=== PATIENT | female | born 2005 | race Caucasian/White ===

== ENCOUNTER 2024-03-29 21:04 | Emergency (ER) | payer OTHER, SELFPAY ==
--- OUTSIDE RECORDS SUMMARY | 2024-03-29 21:11 | XMS REPORT | Continuity of Care Document ---
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 Name Role Phone PCP, PATIENT DOES NOT HAVE A Primary Care Physic clark Unavailable JAYLEN JACKSON Attending Clinician Unavailable JAYLEN JACKSON Attending Clinician Unavailable HECTOR ISAAC Attending Clinician Unavailable Hector Isaac MD Attending Clinician [phone] LUPE LOPEZ Attending Clinician Unavailable Lupe [place] Attending Clinician [phone] Doctor Unassigned, [place] Attending Clinician U courtneyailGODWIN Emery Attending Clinician Unavailable Bro Stinson DO Attending Clinician [phone] Godwin Hobson MD Attending Clinician [phone] RICCARDO HANDY Attending Clinician Unavailable Riccardo Swanson Attending Clinician [phone] SARBJIT HARRIS Attending Clinician Unavailable Sarbjit Leyva Attending Clinician [phone] GUILLERMINA GARZA Attending Clinician UnaGuillermina Morris MD Attending Clinician + Jc Tyson Attending Clinician JC CUELLO Attending Clinician UnavailIRIS Urias Attending Clinician Unavailable IRIS LYNN Attending Clinician Unavailable SUSAN KELLY Attending Clinician Unavaila HECTOR López Admitting Clinician Unavailable LUPE LOPEZ Admitting Clinician Unavailable BRO STINSON Admitting Clinician Unavailable GUILLERMINA GARZA Admitting Clinician Unav ailable Payers Payer Name Policy Type Policy Number Effective Date Expirati on Date Source [facility] [employer] [id number] 2023 00:00:00 [facility] [id number] 2021 00:00:00 Problems Condition Name Condition Details Condition Category Status Onset Date Resolution Date Last Treatment Date Treating Clinician Comments Source Screening examinatio n for STD (sexually transmitte d disease) Screening examinatio n for STD (sexually transmitte d disease) Disease Active 04-26 00:00: 00 [facility] Dysmenorrh ea Dysmenorrh ea Disease Active 04-26 00:00: 00 [facility] Allergies, Adverse Reactions, Alerts Allergy Name Allergy Type Status Severity Reaction(s) Onset Date Inactive Date Treating Clinician Comments Source NO KNOWN ALLERGIE S Drug Class Active [facility] Social History Social Habit Start Date Stop Date Quantity Comments Source Gender identity [facility] 2023-01-21 00:00:00 2023-01-21 00:00:00 0 /d [facility] Alcoholic beverage intake 2023-01-21 00:00:00 2023-01-21 00:00:00 0 /d [facility] Exposure to SARS-CoV-2 (event) 2022-04-03 00:00:00 2022-04-13 14:43:00 Not sure [facility] History of Social function 2021-06-28 00:00:00 2021-06-28 00:00:00 [facility] Tobacco use and exposure 2017-05-26 00:00:00 2017-05-26 00:00:00 Smokeless tobacco non-user [facility] Sex assigned at 2004 00:00:00 2005 00:00:00 [facility] Smoking Status Start Date Stop Date Source Never smoked tobacco [facility] Medications Ordered Medication Name Filled Medication Name Start Date Stop Date Current Medication? Ordering Clinician Indication Dosage Frequency Signature (SIG) Comments Components Source ketorolac (TORADOL) injection 30 mg 09-12 18:30: 00 09-12 18:14 :00 No 30mg 30 mg, Slow IV Push, ONCE, 1 dose, On 09/13/23 at 1330, KAYLEE [facility] naproxen 500 mg tablet 09-12 00:00: 00 09-23 04:59 :00 No [id number] 500mg Take 1 tablet by mouth in the morning and 1 tablet in the evening. Take with meals. Do all this for 10 days. [facility] cephALEXin (KEFLEX) capsule 500 mg 2022-04 04:00: 01-22 04:03 :00 No 500mg 500 mg, Oral, ONCE, 1 dose, On Fri01/21/23 at 2300, KAYLEE
Re ason for Anti-Infec tive: Empiric Therapy for Suspected Infection< br>Empiric Therapy Site: Urine
D uration of therapy: 5 days [facility] NaCl 0.9% (NS) bolus infusion 1,000 mL 2022-04 02:30: 00 01-22 04:03 :00 No 1000mL at 999 mL/hr, 1,000 mL, IV Infusion, ONCE, 1 dose, On Fri01/21/23 at 2130, STAT [facility] ferrous sulfate 325 mg (65 mg iron) EC tablet 2022-04 00:00: 00 Yes [id number] 325mg Take 1 tablet by mouth in the morning and 1 tablet at noon and 1 tablet in the evening. Take with meals. [facility] cephALEXin (KEFLEX) 500 mg capsule 2022-04 00:00: 00 01-30 04:59 :00 No [id number] 500mg Take 1 capsule by mouth in the morning and 1 capsule at noon and 1 capsule in the evening. Do all this for 7 days. [facility] ondansetron 4 mg disintegrat ing tablet 09-19 00:00: 00 Yes [id number] 4mg Take 1 tablet by mouth every 12 (twelve) hours as needed for Nausea and Vomiting (N/V). [facility] butalbital- acetaminoph en-caff 50-325-40 mg tablet 09-19 00:00: 00 Yes [id number] 1{tbl} Take 1 tablet by mouth every 6 (six) hours as needed for Pain (scale 7-10). [facility] ketorolac (TORADOL) injection 15 mg 2021-04 22:45: 00 04-13 22:34 :00 No 15mg 15 mg, Intramuscu lar, ONCE, 1 dose, On 04/13/22 at 1645, KAYLEE [facility] medroxyPROG ESTERone (DEPO-PROVE RA) injection 150 mg 05-09 22:15: 00 04-10 22:14 :00 No [id number] 150mg [facility] naproxen (NAPROSYN) 375 mg tablet 11-28 00:00: 00 09-12 00:00 :00 No 375mg Take 1 tablet by mouth 2 (two) times daily with meals. [facility] Immunizations Ordered Immunization Name Filled Immunization Name Date Status Comments Source SARS-COV-2 COVID-19 PFIZER VACCINE 2020-12-13 00:00:00 Completed [facility] SARS-COV-2 COVID-19 PFIZER VACCINE 2020-12-13 00:00:00 Completed [facility] SARS-COV-2 COVID-19 PFIZER VACCINE 2020-12-13 00:00:00 Completed [facility] SARS-COV-2 COVID-19 PFIZER VACCINE 2020-12-13 00:00:00 Completed [facility] SARS-COV-2 COVID-19 PFIZER VACCINE 2020-12-13 00:00:00 Completed [facility] SARS-COV-2 COVID-19 PFIZER VACCINE 2020-12-13 00:00:00 Completed [facility] SARS-COV-2 COVID-19 PFIZER VACCINE 2020-12-13 00:00:00 Completed [facility] SARS-COV-2 COVID-19 PFIZER VACCINE 2020-11-22 00:00:00 Completed [facility] SARS-COV-2 COVID-19 PFIZER VACCINE 2020-11-22 00:00:00 Completed [facility] SARS-COV-2 COVID-19 PFIZER VACCINE 2020-11-22 00:00:00 Completed [facility] SARS-COV-2 COVID-19 PFIZER VACCINE 2020-11-22 00:00:00 Completed [facility] SARS-COV-2 COVID-19 PFIZER VACCINE 2020-11-22 00:00:00 Completed [facility] SARS-COV-2 COVID-19 PFIZER VACCINE 2020-11-22 00:00:00 Completed [facility] SARS-COV-2 COVID-19 PFIZER VACCINE 2020-11-22 00:00:00 Completed [facility] HPV 2016-11-25 00:00:00 Completed [facility] Meningococcal Vaccine 2016-11-25 00:00:00 Completed [facility] TDAP 2016-11-25 00:00:00 Completed [facility] HPV 2016-11-25 00:00:00 Completed [facility] Meningococcal Vaccine 2016-11-25 00:00:00 Completed [facility] TDAP 2016-11-25 00:00:00 Completed [facility] HPV 2016-11-25 00:00:00 Completed [facility] Meningococcal Vaccine 2016-11-25 00:00:00 Completed [facility] TDAP 2016-11-25 00:00:00 Completed [facility] HPV 2016-11-25 00:00:00 Completed [facility] Meningococcal Vaccine 2016-11-25 00:00:00 Completed [facility] TDAP 2016-11-25 00:00:00 Completed [facility] HPV 2016-11-25 00:00:00 Completed [facility] Meningococcal Vaccine 2016-11-25 00:00:00 Completed [facility] TDAP 2016-11-25 00:00:00 Completed [facility] HPV 2016-11-25 00:00:00 Completed [facility] Meningococcal Vaccine 2016-11-25 00:00:00 Completed [facility] TDAP 2016-11-25 00:00:00 Completed [facility] HPV 2016-11-25 00:00:00 Completed [facility] Meningococcal Vaccine 2016-11-25 00:00:00 Completed [facility] TDAP 2016-11-25 00:00:00 Completed [facility] DTAP 2008-09-15 00:00:00 Completed [facility] DTAP 2008-09-15 00:00:00 Completed [facility] DTAP 2008-09-15 00:00:00 Completed [facility] DTAP 2008-09-15 00:00:00 Completed [facility] DTAP 2008-09-15 00:00:00 Completed [facility] DTAP 2008-09-15 00:00:00 Completed [facility] DTAP 2008-09-15 00:00:00 Completed [facility] MMR 2008-07-11 00:00:00 Completed [facility] Polio (IPV/OPV) 2008-07-11 00:00:00 Completed [facility] Varicella (varivax)(chicken pox) 2008-07-11 00:00:00 Completed [facility] MMR 2008-07-11 00:00:00 Completed [facility] Polio (IPV/OPV) 2008-07-11 00:00:00 Completed [facility] Varicella (varivax)(chicken pox) 2008-07-11 00:00:00 Completed [facility] MMR 2008-07-11 00:00:00 Completed [facility] Polio (IPV/OPV) 2008-07-11 00:00:00 Completed [facility] Varicella (varivax)(chicken pox) 2008-07-11 00:00:00 Completed [facility] MMR 2008-07-11 00:00:00 Completed [facility] Polio (IPV/OPV) 2008-07-11 00:00:00 Completed [facility] Varicella (varivax)(chicken pox) 2008-07-11 00:00:00 Completed [facility] MMR 2008-07-11 00:00:00 Completed [facility] Polio (IPV/OPV) 2008-07-11 00:00:00 Completed [facility] Varicella (varivax)(chicken pox) 2008-07-11 00:00:00 Completed [facility] MMR 2008-07-11 00:00:00 Completed [facility] Polio (IPV/OPV) 2008-07-11 00:00:00 Completed [facility] Varicella (varivax)(chicken pox) 2008-07-11 00:00:00 Completed [facility] MMR 2008-07-11 00:00:00 Completed [facility] Polio (IPV/OPV) 2008-07-11 00:00:00 Completed [facility] Varicella (varivax)(chicken pox) 2008-07-11 00:00:00 Completed [facility] DTAP 2008-03-03 00:00:00 Completed [facility] HEPATITIS A 2008-03-03 00:00:00 Completed [facility] Influenza Virus Vaccine 2008-03-03 00:00:00 Completed [facility] DTAP 2008-03-03 00:00:00 Completed [facility] HEPATITIS A 2008-03-03 00:00:00 Completed [facility] Influenza Virus Vaccine 2008-03-03 00:00:00 Completed [facility] DTAP 2008-03-03 00:00:00 Completed [facility] HEPATITIS A 2008-03-03 00:00:00 Completed [facility] Influenza Virus Vaccine 2008-03-03 00:00:00 Completed [facility] DTAP 2008-03-03 00:00:00 Completed [facility] HEPATITIS A 2008-03-03 00:00:00 Completed [facility] Influenza Virus Vaccine 2008-03-03 00:00:00 Completed [facility] DTAP 2008-03-03 00:00:00 Completed [facility] HEPATITIS A 2008-03-03 00:00:00 Completed [facility] Influenza Virus Vaccine 2008-03-03 00:00:00 Completed [facility] DTAP 2008-03-03 00:00:00 Completed [facility] HEPATITIS A 2008-03-03 00:00:00 Completed [facility] Influenza Virus Vaccine 2008-03-03 00:00:00 Completed [facility] DTAP 2008-03-03 00:00:00 Completed [facility] HEPATITIS A 2008-03-03 00:00:00 Completed [facility] Influenza Virus Vaccine 2008-03-03 00:00:00 Completed [facility] DTAP 2005-12-12 00:00:00 Completed [facility] Pneumococcal 13 Conjugate, PCV13 (Prevnar 13) 2005-12-12 00:00:00 Completed [facility] Polio (IPV/OPV) 2005-12-12 00:00:00 Completed [facility] DTAP 2005-12-12 00:00:00 Completed [facility] Pneumococcal 13 Conjugate, PCV13 (Prevnar 13) 2005-12-12 00:00:00 Completed [facility] Polio (IPV/OPV) 2005-12-12 00:00:00 Completed [facility] DTAP 2005-12-12 00:00:00 Completed [facility] Pneumococcal 13 Conjugate, PCV13 (Prevnar 13) 2005-12-12 00:00:00 Completed [facility] Polio (IPV/OPV) 2005-12-12 00:00:00 Completed [facility] DTAP 2005-12-12 00:00:00 Completed [facility] Pneumococcal 13 Conjugate, PCV13 (Prevnar 13) 2005-12-12 00:00:00 Completed [facility] Polio (IPV/OPV) 2005-12-12 00:00:00 Completed [facility] DTAP 2005-12-12 00:00:00 Completed [facility] Pneumococcal 13 Conjugate, PCV13 (Prevnar 13) 2005-12-12 00:00:00 Completed [facility] Polio (IPV/OPV) 2005-12-12 00:00:00 Completed [facility] DTAP 2005-12-12 00:00:00 Completed [facility] Pneumococcal 13 Conjugate, PCV13 (Prevnar 13) 2005-12-12 00:00:00 Completed [facility] Polio (IPV/OPV) 2005-12-12 00:00:00 Completed [facility] DTAP 2005-12-12 00:00:00 Completed [facility] Pneumococcal 13 Conjugate, PCV13 (Prevnar 13) 2005-12-12 00:00:00 Completed [facility] Polio (IPV/OPV) 2005-12-12 00:00:00 Completed [facility] HIB 4 Dose Schedule 2005-09-10 00:00:00 Completed [facility] HEPATITIS A 2005-09-10 00:00:00 Completed [facility] MMR 2005-09-10 00:00:00 Completed [facility] Varicella (varivax)(chicken pox) 2005-09-10 00:00:00 Completed [facility] HIB 4 Dose Schedule 2005-09-10 00:00:00 Completed [facility] HEPATITIS A 2005-09-10 00:00:00 Completed [facility] MMR 2005-09-10 00:00:00 Completed [facility] Varicella (varivax)(chicken pox) 2005-09-10 00:00:00 Completed [facility] HIB 4 Dose Schedule 2005-09-10 00:00:00 Completed [facility] HEPATITIS A 2005-09-10 00:00:00 Completed [facility] MMR 2005-09-10 00:00:00 Completed [facility] Varicella (varivax)(chicken pox) 2005-09-10 00:00:00 Completed [facility] HIB 4 Dose Schedule 2005-09-10 00:00:00 Completed [facility] HEPATITIS A 2005-09-10 00:00:00 Completed [facility] MMR 2005-09-10 00:00:00 Completed [facility] Varicella (varivax)(chicken pox) 2005-09-10 00:00:00 Completed [facility] HIB 4 Dose Schedule 2005-09-10 00:00:00 Completed [facility] HEPATITIS A 2005-09-10 00:00:00 Completed [facility] MMR 2005-09-10 00:00:00 Completed [facility] Varicella (varivax)(chicken pox) 2005-09-10 00:00:00 Completed [facility] HIB 4 Dose Schedule 2005-09-10 00:00:00 Completed [facility] HEPATITIS A 2005-09-10 00:00:00 Completed [facility] MMR 2005-09-10 00:00:00 Completed [facility] Varicella (varivax)(chicken pox) 2005-09-10 00:00:00 Completed [facility] HIB 4 Dose Schedule 2005-09-10 00:00:00 Completed [facility] HEPATITIS A 2005-09-10 00:00:00 Completed [facility] MMR 2005-09-10 00:00:00 Completed [facility] Varicella (varivax)(chicken pox) 2005-09-10 00:00:00 Completed [facility] HIB 4 Dose Schedule 2005-07-23 00:00:00 Completed [facility] Pediarix (dtap/hep B/ipv) 2005-07-23 00:00:00 Completed [facility] Pneumococcal 13 Conjugate, PCV13 (Prevnar 13) 2005-07-23 00:00:00 Completed [facility] HIB 4 Dose Schedule 2005-07-23 00:00:00 Completed [facility] Pediarix (dtap/hep B/ipv) 2005-07-23 00:00:00 Completed [facility] Pneumococcal 13 Conjugate, PCV13 (Prevnar 13) 2005-07-23 00:00:00 Completed [facility] HIB 4 Dose Schedule 2005-07-23 00:00:00 Completed [facility] Pediarix (dtap/hep B/ipv) 2005-07-23 00:00:00 Completed [facility] Pneumococcal 13 Conjugate, PCV13 (Prevnar 13) 2005-07-23 00:00:00 Completed [facility] HIB 4 Dose Schedule 2005-07-23 00:00:00 Completed [facility] Pediarix (dtap/hep B/ipv) 2005-07-23 00:00:00 Completed [facility] Pneumococcal 13 Conjugate, PCV13 (Prevnar 13) 2005-07-23 00:00:00 Completed [facility] HIB 4 Dose Schedule 2005-07-23 00:00:00 Completed [facility] Pediarix (dtap/hep B/ipv) 2005-07-23 00:00:00 Completed [facility] Pneumococcal 13 Conjugate, PCV13 (Prevnar 13) 2005-07-23 00:00:00 Completed [facility] HIB 4 Dose Schedule 2005-07-23 00:00:00 Completed [facility] Pediarix (dtap/hep B/ipv) 2005-07-23 00:00:00 Completed [facility] Pneumococcal 13 Conjugate, PCV13 (Prevnar 13) 2005-07-23 00:00:00 Completed [facility] HIB 4 Dose Schedule 2005-07-23 00:00:00 Completed [facility] Pediarix (dtap/hep B/ipv) 2005-07-23 00:00:00 Completed [facility] Pneumococcal 13 Conjugate, PCV13 (Prevnar 13) 2005-07-23 00:00:00 Completed [facility] HIB 4 Dose Schedule 2005-05-30 00:00:00 Completed [facility] Pediarix (dtap/hep B/ipv) 2005-05-30 00:00:00 Completed [facility] Pneumococcal 13 Conjugate, PCV13 (Prevnar 13) 2005-05-30 00:00:00 Completed [facility] HIB 4 Dose Schedule 2005-05-30 00:00:00 Completed [facility] Pediarix (dtap/hep B/ipv) 2005-05-30 00:00:00 [facility] [facility] Pneumococcal 13 Conjugate, PCV13 (Prevnar 13) 2005-05-30 00:00:00 Completed [facility] HIB 4 Dose Schedule 2005-05-30 00:00:00 Completed [facility] Pediarix (dtap/hep B/ipv) 2005-05-30 00:00:00 Completed [facility] Pneumococcal 13 Conjugate, PCV13 (Prevnar 13) 2005-05-30 00:00:00 Completed [facility] HIB 4 Dose Schedule 2005-05-30 00:00:00 Completed [facility] Pediarix (dtap/hep B/ipv) 2005-05-30 00:00:00 Completed [facility] Pneumococcal 13 Conjugate, PCV13 (Prevnar 13) 2005-05-30 00:00:00 Completed [facility] HIB 4 Dose Schedule 2005-05-30 00:00:00 Completed [facility] Pediarix (dtap/hep B/ipv) 2005-05-30 00:00:00 Completed [facility] Pneumococcal 13 Conjugate, PCV13 (Prevnar 13) 2005-05-30 00:00:00 Completed [facility] HIB 4 Dose Schedule 2005-05-30 00:00:00 Completed [facility] Pediarix (dtap/hep B/ipv) 2005-05-30 00:00:00 Completed [facility] Pneumococcal 13 Conjugate, PCV13 (Prevnar 13) 2005-05-30 00:00:00 Completed [facility] HIB 4 Dose Schedule 2005-05-30 00:00:00 Completed [facility] Pediarix (dtap/hep B/ipv) 2005-05-30 00:00:00 Completed [facility] Pneumococcal 13 Conjugate, PCV13 (Prevnar 13) 2005-05-30 00:00:00 Completed [facility] HIB 4 Dose Schedule 2005-02-15 00:00:00 Completed [facility] Pediarix (dtap/hep B/ipv) 2005-02-15 00:00:00 Completed [facility] Pneumococcal 13 Conjugate, PCV13 (Prevnar 13) 2005-02-15 00:00:00 Completed [facility] HIB 4 Dose Schedule 2005-02-15 00:00:00 Completed [facility] Pediarix (dtap/hep B/ipv) 2005-02-15 00:00:00 Completed [facility] Pneumococcal 13 Conjugate, PCV13 (Prevnar 13) 2005-02-15 00:00:00 Completed [facility] HIB 4 Dose Schedule 2005-02-15 00:00:00 Completed [facility] Pediarix (dtap/hep B/ipv) 2005-02-15 00:00:00 Completed [facility] Pneumococcal 13 Conjugate, PCV13 (Prevnar 13) 2005-02-15 00:00:00 Completed [facility] HIB 4 Dose Schedule 2005-02-15 00:00:00 Completed [facility] Pediarix (dtap/hep B/ipv) 2005-02-15 00:00:00 Completed [facility] Pneumococcal 13 Conjugate, PCV13 (Prevnar 13) 2005-02-15 00:00:00 Completed [facility] HIB 4 Dose Schedule 2005-02-15 00:00:00 Completed [facility] Pediarix (dtap/hep B/ipv) 2005-02-15 00:00:00 Completed [facility] Pneumococcal 13 Conjugate, PCV13 (Prevnar 13) 2005-02-15 00:00:00 Completed [facility] HIB 4 Dose Schedule 2005-02-15 00:00:00 Completed [facility] Pediarix (dtap/hep B/ipv) 2005-02-15 00:00:00 Completed [facility] Pneumococcal 13 Conjugate, PCV13 (Prevnar 13) 2005-02-15 00:00:00 Completed [facility] HIB 4 Dose Schedule 2005-02-15 00:00:00 Completed [facility] Pediarix (dtap/hep B/ipv) 2005-02-15 00:00:00 Completed [facility] Pneumococcal 13 Conjugate, PCV13 (Prevnar 13) 2005-02-15 00:00:00 Completed [facility] Hep B, Adol or Pedi Dosage 2004 00:00:00 Completed [facility] Hep B, Adol or Pedi Dosage 2004 00:00:00 Completed [facility] Hep B, Adol or Pedi Dosage 2004 00:00:00 Completed [facility] Hep B, Adol or Pedi Dosage 2004 00:00:00 Completed [facility] Hep B, Adol or Pedi Dosage 2004 00:00:00 Completed [facility] Hep B, Adol or Pedi Dosage 2004 00:00:00 Completed [facility] Hep B, Adol or Pedi Dosage 2004 00:00:00 Completed [facility] SARS-COV-2 COVID-19 PFIZER VACCINE Unknown Completed [facility] DTAP Unknown Completed [facility] HIB 4 Dose Schedule Unknown Completed [facility] HEPATITIS A Unknown Completed [facility] Hep B, Adol or Pedi Dosage Unknown Completed [facility] HPV Unknown Completed [facility] Influenza Virus Vaccine Unknown Completed [facility] Meningococcal Vaccine Unknown Completed [facility] MMR Unknown Completed [facility] Pediarix (dtap/hep B/ipv) Unknown Completed [facility] Pneumococcal 13 Conjugate, PCV13 (Prevnar 13) Unknown Completed [facility] Polio (IPV/OPV) [facility] Varicella (varivax)(chicken pox) Unknown Completed [facility] SARS-COV-2 COVID-19 PFIZER VACCINE Unknown Completed [facility] DTAP Unknown Completed [facility] HIB 4 Dose Schedule Unknown Completed [facility] HEPATITIS A Unknown Completed [facility] Hep B, Adol or Pedi Dosage Unknown Completed [facility] HPV Unknown Completed [facility] Influenza Virus Vaccine Unknown Completed [facility] Meningococcal Vaccine Unknown Completed [facility] MMR Unknown Completed [facility] Pediarix (dtap/hep B/ipv) Unknown Completed [facility] Pneumococcal 13 Conjugate, PCV13 (Prevnar 13) Unknown Completed [facility] Polio (IPV/OPV) Unknown [facility] Com[facility] Varicella (varivax)(chicken pox) Unknown Completed [facility] SARS-COV-2 COVID-19 PFIZER VACCINE Unknown Completed [facility] DTAP Unknown Completed [facility] HIB 4 Dose Schedule Unknown Completed [facility] HEPATITIS A Unknown Completed [facility] Hep B, Adol or Pedi Dosage Unknown Completed [facility] HPV Unknown Completed [facility] Influenza Virus Vaccine Unknown Completed [facility] Meningococcal Vaccine Unknown Completed [facility] MMR Unknown Completed [facility] Pediarix (dtap/hep B/ipv) Unknown Completed [facility] Pneumococcal 13 Conjugate, PCV13 (Prevnar 13) Unknown Completed [facility] Polio (IPV/OPV) Unknown [facility] Completed [facility] Varicella (varivax)(chicken pox) Unknown Completed [facility] SARS-COV-2 COVID-19 PFIZER VACCINE Unknown Completed [facility] DTAP Unknown Completed [facility] HIB 4 Dose Schedule Unknown Completed [facility] HEPATITIS A Unknown Completed [facility] Hep B, Adol or Pedi Dosage Unknown Completed [facility] HPV Unknown Completed [facility] Influenza Virus Vaccine Unknown Completed [facility] Meningococcal Vaccine Unknown Completed [facility] MMR Unknown Completed [facility] Pediarix (dtap/hep B/ipv) Unknown Completed [facility] Pneumococcal 13 Conjugate, PCV13 (Prevnar 13) Unknown Completed [facility] Polio (IPV/OPV) Unknown Completed [facility] TDAP Unknown Completed [facility] Varicella (varivax)(chicken pox) Unknown Completed [facility] Vital Signs Vital Name Observation Time Observation Value Comments S ource Systolic blood pressure 2023-09-13 19:30:00 128 mm[Hg] [facility] Diastolic blood pressure 2023-09-13 19:30:00 68 mm[Hg] [facility] Heart rate 2023-09-13 19:30:00 71 /min [facility] Body temperature 2023-09-13 19:30:00 36.56 Georgina [facility] Respiratory rate 2023-09-13 19:30:00 20 /min [facility] Oxygen saturation in Arterial blood by Pulse oximetry 2023-09-13 19:30:00 100 /min [facility] Body height 2023-09-13 16:58:00 167.6 cm [facility] Body weight 2023-09-13 16:58:00 58.968 kg [facility] BMI 2023-09-13 16:58:00 20.98 kg/m2 [facility] Systolic blood pressure 2023-05-02 03:03:00 114 mm[Hg] [facility] Diastolic blood pressure 2023-05-02 03:03:00 65 mm[Hg] [facility] Heart rate 2023-05-02 03:03:00 70 /min [facility] Body temperature 2023-05-02 03:03:00 36.17 Georgina [facility] Respiratory rate 2023-05-02 03:03:00 23 /min [facility] Oxygen saturation in Arterial blood by Pulse oximetry 2023-05-02 03:03:00 98 /min [facility] Body height 2023-05-02 01:05:00 170.2 cm [facility] Body weight 2023-05-02 01:05:00 60.328 kg [facility] BMI 2023-05-02 01:05:00 20.83 kg/m2 [facility] Body mass index (BMI) [Percentile] Per age and sex 2023-05-02 01:05:00 41.05 % [facility] Systolic blood pressure 2023-01-22 05:00:00 111 mm[Hg] [facility] Diastolic blood pressure 2023-01-22 05:00:00 67 mm[Hg] [facility] Heart rate 2023-01-22 05:00:00 89 /min [facility] Respiratory rate 2023-01-22 05:00:00 22 /min [facility] Oxygen saturation in Arterial blood by Pulse oximetry 2023-01-22 05:00:00 99 /min [facility] Body temperature 2023-01-22 02:26:00 37.22 Georgina [facility] Body height 2023-01-22 02:26:00 167.6 cm [facility] Body weight 2023-01-22 02:26:00 58.06 kg [facility] BMI 2023-01-22 02:26:00 20.66 kg/m2 [facility] Body mass index (BMI) [Percentile] Per age and sex 2023-01-22 02:26:00 39.62 % [facility] Systolic blood pressure 2022-12-01 04:19:00 126 mm[Hg] [facility] Diastolic blood pressure 2022-12-01 04:19:00 93 mm[Hg] [facility] Heart rate 2022-12-01 04:19:00 92 /min [facility] Body temperature 2022-12-01 04:19:00 36.94 Georgina [facility] Respiratory rate 2022-12-01 04:19:00 18 /min [facility] Body height 2022-12-01 04:19:00 167.6 cm [facility] Body weight 2022-12-01 04:19:00 58.333 kg [facility] BMI 2022-12-01 04:19:00 20.76 kg/m2 [facility] Body mass index (BMI) [Percentile] Per age and sex 2022-12-01 04:19:00 41.50 % [facility] Oxygen saturation in Arterial blood by Pulse oximetry 2022-12-01 04:19:00 98 /min [facility] Systolic blood pressure 2022-09-19 23:36:00 127 mm[Hg] [facility] Diastolic blood pressure 2022-09-19 23:36:00 88 mm[Hg] [facility] Heart rate 2022-09-19 23:36:00 71 /min [facility] Body temperature 2022-09-19 23:36:00 36.67 Georgina [facility] Respiratory rate 2022-09-19 23:36:00 18 /min [facility] Oxygen saturation in Arterial blood by Pulse oximetry 2022-09-19 23:36:00 98 /min [facility] Body height 2022-09-19 22:04:00 165.1 cm [facility] Body weight 2022-09-19 22:04:00 57.38 kg [facility] BMI 2022-09-19 22:04:00 21.05 kg/m2 [facility] Body mass index (BMI) [Percentile] Per age and sex 2022-09-19 22:04:00 46.15 % [facility] Systolic blood pressure 2022-04-13 20:43:00 149 mm[Hg] [facility] Diastolic blood pressure 2022-04-13 20:43:00 93 mm[Hg] [facility] Heart rate 2022-04-13 20:43:00 79 /min [facility] Body temperature 2022-04-13 20:43:00 37 Georgina [facility] Respiratory rate 2022-04-13 20:43:00 14 /min [facility] Body weight 2022-04-13 20:43:00 60.737 kg [facility] Oxygen saturation in Arterial blood by Pulse oximetry 2022-04-13 20:43:00 100 /min [facility] Systolic blood pressure 2021-05-09 21:57:00 114 mm[Hg] [facility] Diastolic blood pressure 2021-05-09 21:57:00 76 mm[Hg] [facility] Heart rate 2021-05-09 21:57:00 80 /min [facility] Body temperature 2021-05-09 21:57:00 37.06 Georgina [facility] Respiratory rate 2021-05-09 21:57:00 20 /min [facility] Body height 2021-05-09 21:57:00 167.6 cm [facility] Body weight 2021-05-09 21:57:00 57.063 kg [facility] BMI 2021-05-09 21:57:00 20.30 kg/m2 [facility] Body mass index (BMI) [Percentile] Per age and sex 2021-05-09 21:57:00 42.63 % [facility] Procedures Procedure Date / Time Performed Performing Clinician Source LIPASE 2023-09-13 18:37:[address] [facility] TEST, SERUM 2023-09-13 18:37:00 Abel Isaac [facility] TROPONIN I 2023-09-13 18:37:00 Hector Isaac [facility] COMP. METABOLIC PANEL ([id number]) 2023-09-13 18:37:00 Hector Isaac [facility] CBC WITH DIFF 2023-09-13 18:37:00 Hector Isaac [facility] TROPONIN I 2023-05-02 01:40:00 Lupe Lopez [facility] COMP. METABOLIC PANEL ([id number]) 2023-05-02 01:40:00 Lupe Lopez [facility] CBC WITH DIFF 2023-05-02 01:40:00 Lupe Lopez [facility] XR CHEST 1 VW 2023-05-02 01:34:01 Lupe Lopez [facility] NOTICE OF PRIVACY PRACTICES 2023-05-02 00:56:45 Doctor Unassigned, [place] [facility] NOTICE OF PRIVACY PRACTICES 2023-05-02 00:55:58 Doctor Unassigned, [place] [facility] IRON PANEL 2023-01-22 03:54:00 Bro Stinson [facility] POCT TEST 2023-01-22 02:46:00 Samy Stinson [facility] URINALYSIS 2023-01-22 02:45:[address] [facility] TROPONIN I 2023-01-22 02:37:[address] [facility] COMP. METABOLIC PANEL ([id number]) 2023-01-22 02:37:00 Bro Stinson [facility] CBC WITH DIFF 2023-01-22 02:37:00 Bro Stinson [facility] ASSIGNMENT OF BENEFITS 2022-12-01 05:10:09 Docto r Unassigned, [place] [facility] CONSENT/REFUSAL FOR DIAGNOSIS AND TREATMENT 2022-12-01 04:07:28 Doctor Unassigned, [place] [facility] POCT TEST 2022-09-19 23:14:00 Sarbjit Harris [facility] ASSIGNMENT OF BENEFITS 2022-09-19 22:44:57 Docto r Unassigned, [place] [facility] NOTICE OF PRIVACY PRACTICES 2022-09-19 21:56:41 Doctor Unassigned, [place] [facility] CONSENT/REFUSAL FOR DIAGNOSIS AND TREATMENT 2022-09-19 21:55:59 Doctor Unassigned, [place] [facility] XR HAND 3+ VW LEFT 2022-04-13 21:16:00 Guillermina Mesa [facility] CONSENT/REFUSAL FOR DIAGNOSIS AND TREATMENT 2022-04-13 20:22:52 Doctor Unassigned, [place] [facility] PATIENT QUESTIONNAIRE 2021-06-21 06:01:00 Doctor Unassigned, [place] [facility] AUTHORIZATION TO RELEASE PHI TO [facility] 2021-05-22 06:01:00 Doctor Unassigned, [place] [facility] POCT TEST 2021-05-09 00:00:00 Verito Cuello [facility] Encounters Start Date/Time End Date/Time Encounter Type Admission Type Attending [facility] Facility Care Department Encounter ID Source 2024-04-09 10:00:00 2024-04-09 10:00:00 Outpatient R JAYLEN JACKSON [facility] [id number] [facility] 2023-09-13 11:54:00 2023-09-13 14:40:00 Emergency X HECTOR ISAAC [facility] ERT [id number] [facility] 2023-09-13 11:54:00 2023-09-13 14:40:00 Emergency Hector Isaac [facility] [id number] [id number] [id number] [facility] 2023-05-01 19:11:00 2023-05-01 21:11:00 Emergency X LUPE LOPEZ [facility] ERT [id number] [facility] 2023-05-01 19:11:00 2023-05-01 21:11:00 Emergency Lupe Lopez [facility] [id number] [id number] [id number] [id number] [facility] 2023-01-23 00:00:00 2023-01-23 00:00:00 Patient Secure Msg Doctor Unassigned, [place] [facility] [id number] [id number] [id number] [id number] [facility] 2023-01-21 21:29:00 2023-01-22 00:54:00 Emergency X GODWIN HOBSON [facility] ERT [id number] [facility] 2023-01-21 21:29:00 2023-01-22 00:54:00 Emergency Bro Stinson Brent J [facility] [id number] [id number] [id number] [id number] [facility] 2022-11-30 23:22:00 2022-12-01 00:18:00 Emergency X RICCARDO HANDY [facility] ERT [id number] [facility] 2022-11-30 23:22:00 2022-12-01 00:18:00 Emergency Riccardo Handy [facility] [id number] [id number] 4.2.7.2.686 [id number] [facility] 2022-09-19 17:05:00 2022-09-19 18:39:00 Emergency X SARBJIT HARRIS [facility] ERT [id number] [facility] 2022-09-19 17:05:00 2022-09-19 18:39:00 Emergency Sarbjit Harris B [facility] [id number] [id number] 4.2.7.2.686 [id number] [facility] 2022-04-13 14:44:00 2022-04-13 16:36:00 Emergency X GUILLERMINA GARZA [facility] ERT [id number] [facility] 2022-04-13 14:44:00 2022-04-13 16:36:00 Emergency AuGuillermina burroughs [facility] [id number] [id number] 4.2.7.2.686 [id number] [facility] 2021-12-28 00:00:00 2021-12-28 00:00:00 Telephone Jc Cuello [facility] MOTOR VEHICLE REPRESENTATIVE [facility] [id number] [id number] [id number] [id number] [facility] 2021-08-23 13:30:00 2021-08-23 13:30:00 Outpatient JC HERNANDEZ [facility] [id number] [facility] 2021-08-07 15:30:00 2021-08-07 15:30:00 Outpatient R [facility] [id number] [facility] 2021-08-07 15:30:00 2021-08-07 15:30:00 Outpatient R [facility] [id number] [facility] 2021-07-11 09:00:00 2021-07-11 09:00:00 Outpatient IRIS PIZARRO [facility] [id number] [facility] 2021-06-27 09:00:00 2021-06-27 10:33:39 Outpatient IRIS PIZARRO [facility] [id number] [facility] 2021-06-21 00:00:00 2021-06-21 00:00:00 Orders Only Doctor Unassigned, [place] [id number] 350.1.13.10 4.2.7.2.686 [id number] [facility] 2021-06-20 09:00:00 2021-06-20 12:09:42 Outpatient IRIS PIZARRO [facility] [id number] [facility] 2021-05-22 00:00:00 2021-05-22 00:00:00 Orders Only Doctor Unassigned, [place] [id number] [id number] [id number] [id number] [facility] 2021-05-09 16:00:00 2021-05-09 16:13:26 Outpatient JC HERNANDEZ [facility] [facility] [id number] [facility] 2021-05-09 16:00:00 2021-05-09 16:13:26 Office Visit Jennifer Cuelloyuliana Alford [facility] MOTOR VEHICLE REPRESENTATIVE [facility] CHILD [facility] 1..840.114 350.1.13.10 [id number] [id number] [facility] 2021-05-09 16:00:00 2021-05-09 16:00:00 Outpatient Rocío CUELLO [facility] [id number] [facility] 2021-05-09 00:00:00 2021-05-09 00:00:00 Orders Only Doctor Unassigned, [place] [facility] [place] 1..840.114 350.1.13.10 4.2.7.2.686 [id number] [facility] 2021-04-26 09:45:00 2021-04-26 10:42:33 Outpatient R KHUSHBOO [facility] [id number] [facility] 2021-04-26 09:45:00 2021-04-26 10:42:33 Office Visit Cuello, Jc RUST MOTOR VEHICLE REPRESENTATIVE [facility] [id number] 350.1.13.10 [id number] [id number] [facility] 2021-04-26 09:45:00 2021-04-26 10:42:33 [facility] [id number] [facility] 2021-04-26 00:00:00 2021-04-26 00:00:00 Orders Only Doctor Unassigned, [place] [facility] [place] [id number] 350.1.13.10 [id number] [id number] [facility] 2019-04-02 18:03:12 2019-04-02 18:04:00 Emergency X SUSAN KELLY [facility] ERT [id number] [facility] Results Test Description Test Time Test Comments Results Result Co mments Source [facility]. METABOLIC PANEL ([id number])2023-09-13 19:00:38* Test Item Value Reference Range Interpretation Comme nts NA (test code = 0703487365) 138 mmol/L 135-145 K (test code = 8325317722) 4.1 mmol/L 3.5-5.0 CL (test code = 2139817566) 109 mmol/L 98-108 H CO2 TOTAL (test code = 5674304983) 22 mmol/L 23-31 L AGAP (test code = 4696048404) 7 2-16 BUN (test code = 3366134877) 7 mg/dL 7-23 GLUCOSE (test code = 0583654890) 89 mg/dL 70-110 CREATININE (test code = 2160-0) 0.69 mg/dL 0.50-1.04 TOTAL BILI (test code = 5654527348) 0.5 mg/dL 0.1-1.1 CALCIUM (test code = 8840691464) 8.7 mg/dL 8.6-10.6 T PROTEIN (test code = 9668443609) 6.9 g/dL 6.3-8.2 ALBUMIN (test code = 5277968362) 4.1 g/dL 3.5-5.0 ALK PHOS (test code = 0885704441) 77 U/L 34-122 ALTv (test code = 1742-6) 13 U/L 5-35 AST(SGOT) (test code = 4319192153) 28 U/L 13-40 eGFR (test code = 12826-4) 128.4 mL/min/1.73m2 CKD-EPI eGFR (2020). Assuming creatinine has been stable day-to-day for at least three months, the eGFR indicates Category G1 (>= 90 mL/min/1.73 m2) Lab Interpretation (test code = 80612-7) Abnormal [facility] CampusLIPASE2024-05-25 19:00:18* Test Item Value Reference Range Interpretation Comme nts LIPASE (test code = 0210178707) 109 U/L 0-220 Lab Interpretation (test cod e = 15739-4) Normal [facility] CampusPREGNANCY TEST, [id number] 18:59:52* Test Item Value Reference Range Interpretation Comme nts PREG SERUM (test code = 6876035294) Negative ELIZABETH (test code = ELIZABETH) Less than 10 IU/L. ?If low titer or ectopic is suspected, resubmit specimen in 48-72 hours. [facility] CampusCB WITH [id number] 18:44:17* Test Item Value Reference Range Interpretation Comme nts WBC (test code = 6690-2) 12.97 4.30-11.10 H RBC (test code = 789-8) 4.51 3.93-5.25 HGB (test code = 718-7) 10.1 g/dL 11.6-15.0 L HCT (test code = 4544-3) 33.3 % 35.7-45.2 L MCV (test code = 787-2) 73.8 fL 80.6-95.5 L MCH (test code = 785-6) 22.4 pg 25.9-32.8 L MCHC (test code = 786-4) 30.3 g/dL 31.6-35.1 L RDW-SD (test code = 47024-2) 39.6 fL 39.0-49.9 RDW-CV (test code = 788-0) 14.9 % 12.0-15.5 PLT (test code = 777-3) 413 166-358 H MPV (test code = 36721-4) 9.7 fL 9.5-12.9 NRBC/100 WBC (test code = 5453570547) 0.0 0.0-10.0 NRBC x10^3 (test code = 7230473760) See_Comment [Automated message] The system which generated this result transmitted reference range: 10*3/?L. The reference range was not used to interpret this result as normal/abnormal. GRAN MAT (NEUT) % (test code = 770-8) 80.6 % IMM GRAN % (test code = 6865384857) 0.20 % LYMPH % (test code = 736-9) 14.8 % MONO % (test code = 5905-5) 3.6 % EOS % (test code = 713-8) 0.3 % BASO % (test code = 706-2) 0.5 % GRAN MAT x10^3(ANC) (test code = 6521136743) 10.44 10*3/uL 1.88-7.09 H IMM GRAN x10^3 (test code = 7403900761) 0.03 10*3/uL 0.00-0.06 LYMPH x10^3 (test code = 731-0) 1.92 10*3/uL 1.32-3.29 MONO x10^3 (test code = 742-7) 0.47 10*3/uL 0.33-0.92 EOS x10^3 (test code = 711-2) 0.04 10*3/uL 0.03-0.39 BASO x10^3 (test code = 704-7) 0.07 10*3/uL 0.01-0.07 Lab Interpretation (test code = 92514-8) Abnormal [facility] CampusTROPONIN [id number] 02:16:16* Test Item Value Reference Range Interpretation Comme nts TROPONIN I (test code = 0320542525) 0.002 ng/mL <=0.034 ELIZABETH (test code = ELIZABETH) Reference (Normal) Range (defined by the 99th percentile reference limit): <= 0.034 ng/mL Note: Cardiac troponin begins to rise 3-4 hours after the onset of ischemia. Repeat in 4-6 hours if the sample was drawn within 3-4 hours of the onset of the symptom and found normal. Diagnosis of myocardial injury is made with acute changes in cTn concentrations with at least one serial sample above the 99th percentile upper reference limit (URL), taken together with the patient's clinical presentation. Biotin has been reported to cause a negative bias, interpret results relative to patient's use of biotin. Lab Interpretation (test code = 12641-2) Normal [facility] CampusXR CHEST 1 [id number] 02:13:49EXAM: XR CHEST 1 VW COMPARISON: Chest radiograph 01/21/2023. HISTORY: cp FINDINGS: Lungs: The lung volumes are normal. No focal opacities. No pleuralabnormalities are detected. Heart/Mediastinum: The cardiac silhouette appears normal accounting fortechnique. Bones and soft tissues: No acute osseous findings are detected. [facility] CampusCOM. METABOLIC PANEL (17313)2023-05-02 02:04:54* Test Item Value Reference Range Interpretation Comme nts NA (test code = 7735219439) 140 mmol/L 135-145 K (test code = 0299372221) 4.2 mmol/L 3.5-5.0 CL (test code = 6277736245) 104 mmol/L 98-108 CO2 TOTAL (test code = 4318040707) 28 mmol/L 23-31 AGAP (test code = 2846064370) 8 2-16 BUN (test code = 2687701651) 8 mg/dL 7-23 GLUCOSE (test code = 3672476864) 101 mg/dL 70-110 CREATININE (test code = 3876519977) 0.61 mg/dL 0.50-1.04 TOTAL BILI (test code = 5707438183) 0.4 mg/dL 0.1-1.1 CALCIUM (test code = 7834855827) 9.3 mg/dL 8.6-10.6 T PROTEIN (test code = 5922902812) 7.4 g/dL 6.3-8.2 ALBUMIN (test code = 8413116925) 4.4 g/dL 3.5-5.0 ALK PHOS (test code = 2506445001) 75 U/L 34-122 ALTv (test code = 1742-6) 21 U/L 5-35 AST(SGOT) (test code = 5442857243) 27 U/L 13-40 eGFR (test code = 61569-9) 133.1 mL/min/1.73m2 CKD-EPI eGFR (20 21). Assuming creatinine has been stable day-to-day for at least three months, the eGFR indicates Category G1 (>= 90 mL/min/1.73 m2) [facility] WITH [id number] 01:54:33* Test Item Value Reference Range Interpretation Comme nts WBC (test code = 6690-2) 7.96 See_Comment [Automated [employer] ge] The system which generated this result transmitted reference range: 4.50 - 13.50 10*3/?L. The reference range was not used to interpret this result as normal/abnormal. RBC (test code = 789-8) 4.77 See_Comment [Automated messa ge] The system which generated this result transmitted reference range: 4.10 - 5.10 10*6/?L. The reference range was not used to interpret this result as normal/abnormal. HGB (test code = 718-7) 12.9 g/dL 12.0-16.0 HCT (test code = 4544-3) 38.8 % 36.0-45.0 MCV (test code = 787-2) 81.3 fL 78.0-95.0 MCH (test code = 785-6) 27.0 pg 26.0-32.0 MCHC (test code = 786-4) 33.2 g/dL 32.0-36.0 RDW-SD (test code = 43787-1) 39.1 fL 38.5-49.0 RDW-CV (test code = 788-0) 14.4 % 11.5-14.0 H PLT (test code = 777-3) 402 See_Comment H [Automated messa ge] The system which generated this result transmitted reference range: 135 - 361 10*3/?L. The reference range was not used to interpret this result as normal/abnormal. MPV (test code = 89277-2) 9.3 fL 9.4-13.3 L NRBC/100 WBC (test code = 1990340918) 0.0 See_Comment [Automated [employer] ssage] The system which generated this result transmitted reference range: 0.0 - 10.0 /100 WBCs. The reference range was not used to interpret this result as normal/abnormal. NRBC x10^3 (test code = 8824569023) See_Comment [Automated messa ge] The system which generated this result transmitted reference range: 10*3/?L. The reference range was not used to interpret this result as normal/abnormal. GRAN MAT (NEUT) % (test code = 770-8) 63.6 % IMM GRAN % (test code = 9889872602) 0.10 % LYMPH % (test code = 736-9) 26.9 % MONO % (test code = 5905-5) 7.5 % EOS % (test code = 713-8) 1.3 % BASO % (test code = 706-2) 0.6 % GRAN MAT x10^3(ANC) (test code = 6847175164) 5.06 10*3/uL 1.50-10.30 IMM GRAN x10^3 (test code = 8611899738) 0.00-0.06 LYMPH x10^3 (test code = 731-0) 2.14 10*3/uL 0.70-7.40 MONO x10^3 (test code = 742-7) 0.60 10*3/uL 0.00-0.50 H EOS x10^3 (test code = 711-2) 0.10 10*3/uL 0.00-0.40 BASO x10^3 (test code = 704-7) 0.05 10*3/uL 0.00-0.10 Lab Interpretation (test code = 83050-9) Abnormal [facility] [id number] 05:36:19* Test Item Value Reference Range Interpretation Comme nts IRON (test code = 2199366211) 17 ug/dL 50-160 L TIBC (test code = 0568324112) 444 ug/dL 250-410 H % FE SAT (test code = 8467180115) 4 % 20-50 L Lab Interpretation (test cod e = 87726-1) Abnormal [facility] [id number] 02:46:00* Test Item Value Reference Range Interpretation Comme nts POCT PREG (test code = 1605) Negative On board controls acceptable with C Line (test code = 3574) Yes POCT PREG LOT # (test code = 3575) [id number] POCT PREG TEST DATE ( test code = 3576) 2024-06-29 Lab Interpretation (test cod e = 32882-7) Normal [facility] [id number] 23:14:00* Test Item Value Reference Range Interpretation Comme nts POCT PREG (test code = 1605) Negative On board controls acceptable with C Line (test code = 3574) Yes POCT PREG LOT # (test code = 3575) [id number] POCT PREG TEST DATE ( test code = 3576) Lab Interpretation (test cod e = 10794-1) Normal [facility] [id number] 22:01:00* Test Item Value Reference Range Interpretation Comme nts POCT PREG (test code = 1605) Negative On board controls acceptable with C Line (test code = 3574) Yes POCT PREG LOT # (test code = 3575) POCT PREG TEST DATE ( test code = 3576) [facility] CampusPOCT [id number] 22:01:00* Test Item Value Reference Range Interpretation Comme nts POCT PREG (test code = 1605) Negative On board controls acceptable with C Line (test code = 3574) Yes POCT PREG LOT # (test code = 3575) POCT PREG TEST DATE ( test code = 3576) [facility]
[2024-03-29 21:57] LABS: Absolute Basophils 0.1 K/uL (0-0.5); Absolute Eosinophils 0.1 K/uL (0-0.5); Absolute Monocytes 0.6 K/uL (0.1-1.3); Basophils % 0.6 % (0-1.3); Eosinophils % 0.6 % (0-4.4); Hematocrit 32.6 % (36.0-45.0); Hemoglobin 10.3 g/dL (12.0-15.0); Lymphocytes % 20.8 % (15.3-44.8); MCH 21.2 pg (27.0-35.0); MCHC 31.6 g/dL (32.0-36.0); MPV 7.4 fL (7.6-11.3); Monocytes % 6.5 % (3.3-12.3); Neutrophils % 71.5 % (41.7-73.7); Nucleated Red Blood Cells % 0.1 % (0-0); Platelets 484 thou/uL (152-406); RBC Red Blood Cell Count 4.86 M/uL (3.86-4.86); Red Cell Distribution Width 18.5 % (12.1-15.2)
[2024-03-29 22:01] LABS: Urine Bacteria <20 /HPF (<20); Urine Bilirubin NEGATIVE (Negative); Urine Blood Negative (Negative); Urine Clarity Extremely Turbid (Clear); Urine Color Light-Yellow (Yellow); Urine Culture Reflex Order NOT NEEDED; Urine Glucose NEGATIVE (Negative); Urine Ketones 2+ (Negative); Urine Microscopic Reflex YN ORDER UMIC; Urine Mucus Slight /HPF (None Seen); Urine Nitrite NEGATIVE (Negative); Urine Protein NEGATIVE (Negative); Urine RBC <5 /HPF (None Seen); Urine Urobilinogen Normal (Normal); Urine WBC <5 /HPF (<5)
[2024-03-29] MEDS ORDERED: NA CHLORIDE 0.9% 1,000 ML ONE (22:09)
[2024-03-29 22:29] LABS: Anion Gap 9.6 mEq/L (5.0-15.0); Potassium 3.6 mEq/L (3.5-5.1)
--- NOTE | 2024-03-29 22:33 | RAD REPORT ---
EXAMINATION: US Transvaginal OB COMPARISON: None. HISTORY: [facility] MAIN ABD PAIN Bed Name: 5 TECHNIQUE: Real-time ultrasound was performed through the pelvis. A transvaginal scan was performed t o better visualize the intrauterine contents and adnexa. FINDINGS: There is a single living intrauterine . The gestational sac present within the mid to lower uterine segment. Normal appearing yolk sac present, measuring 3 mm. Crescentic subchorionic hemorrhage left of the gestational sac, measuring 2.0 x 1.1 x 1.0 cm Both ovaries are visualized and appear unremarkable. There is no free fluid in the cul-de-sac. Measurements and Calculations: [place] rump length measures 2.8 mm, consistent with a sonographic age of 5 weeks, 6 days. The patient' s LMP dates are 02/15/2024. heart rate: 116 bpm IMPRESSION: Single living intrauterine , appears to be in the mid to lower uterine segment, with a compo site sonographic age of 5 weeks, 6 days. Subchorionic hemorrhage measuring up to 1 cm in thickness. Close clinical follow-up, and consideratio n of sonographic follow-up in 7-10 days are recommended.
--- NOTE | 2024-03-29 23:10 | ER ---
Nurse's Notes [facility] Name: Gretta Ward Age: 18 yrs Sex: Female : 2005 Arrival Date: 03/29/2024 Time: 21:04 Bed 5 Private MD: Diagnosis: Less than 8 weeks gestation of ;Abdominal pain, Generalized Presentation: 03/29 21:22 Chief complaint: Patient states: LUQ abdominal pain onset 4 days ago and worse today. cm10 Pt also reports nausea and vomiting. Coronavirus screen: Client denies travel out of the [place] in the last 14 days. Ebola Screen: Patient denies travel to an Ebola-affected area in the 21 days before illness onset. No symptoms or risks identified at this time. Initial Sepsis Screen: Does the patient meet any 2 criteria? No. Patient's initial sepsis screen is negative. Does the patient have a suspected source of infection? No. Patient's initial sepsis screen is negative. Risk Assessment: Do you want to hurt yourself or someone else? Patient reports no desire to harm self or others. Onset of symptoms was March 25, 2024. 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 - Infectious Disease History:: Denies. - Social history:: Smoking status: unknown. Screenin:49 [facility] ED Fall Risk Assessment (Adult) History of falling in the last 3 months, mt4 including since admission No falls in past 3 months (0 pts) Confusion or Disorientation No (0 pts) Intoxicated or Sedated No (0 pts) Impaired Gait No (0 pts) Mobility Assist Device Used No (0 pt) Altered Elimination No (0 pt) Score/Fall Risk Level 0 - 2 = Low Risk. Abuse screen: Denies threats or abuse. Nutritional screening: No deficits noted. Tuberculosis screening: No symptoms or risk factors identified. Exposure risk/Travel Screening: None identified. Assessment: 21:49 General: Appears in no apparent distress. comfortable, Behavior is calm, cooperative, mt4 appropriate for age. Pain: Complains of pain in abdomen Pain currently is 7 out of 10 on a pain scale. Quality of pain is described as aching, crampy, Pain began 2-3 days ago. Neuro: Level of Consciousness is awake, alert, obeys commands, Oriented to person, place, time, situation, Applications Support Lead are equal bilaterally Moves all extremities. Gait is unsteady, Speech is normal, Facial symmetry appears normal. Cardiovascular: Capillary refill < 3 seconds. Respiratory: Airway is patent Trachea midline Respiratory effort is Respiratory pattern is regular, symmetrical. GI: Bowel sounds present X 4 quads. Abdomen is tender to palpation in left lower quadrant. : Denies cramping. Musculoskeletal: Capillary refill < 3 seconds, Range of motion: intact in all extremities. 23:16 Reassessment: Patient appears in no apparent distress at this time. Patient and/or bm8 family updated on plan of care and expected duration. Pain level reassessed. Patient is alert, oriented x 3, equal unlabored respirations, skin warm/dry/pink. Patient denies pain at this time. Patient states feeling better. Patient states symptoms have improved. Vital Signs: 21:22 BP 132 / 88; Pulse 80; Resp 16; Temp 99.6; Pulse Ox 100% ; Weight 59.87 kg; Height 5 cm10 ft. 5 in. ; Pain 7/10; 21:46 BP 132 / 88; Pulse 75; Resp 18; Temp 98.7(O); Pulse Ox 100% on R/A; Pain 7/10; mt4 23:13 BP 112 / 84; Pulse 65; Resp 17; Pulse Ox 100% on R/A; mt4 23:16 BP 112 / 64; Pulse 64; Resp 17; Temp 98.7; Pulse Ox 100% ; Pain 0/10; bm8 21:22 Body Mass Index 21.97 (59.87 kg, 165.1 cm) - Percentile 53.3 % cm10 21:22 Pain Scale: Adult cm10 21:46 Pain Scale: Adult mt4 23:16 Pain Scale: Adult bm8 [place] Coma Score: 21:49 Eye Response: spontaneous(4). Motor Response: obeys commands(6). Verbal Response: mt4 oriented(5). Total: 15. 23:16 Eye Response: spontaneous(4). Motor Response: obeys commands(6). Verbal Response: bm8 oriented(5). Total: 15. ED Course: 21:09 Patient arrived in ED. mr 21:10 Jossy Donahue, [facility]ILNER [facility]. kb 21:10 Oscar Thomson MD is Attending Physician. kb 21:23 Triage completed. cm10 21:24 Arm band placed on Patient placed in an exam room, on a stretcher. cm10 21:43 Missed attempt(s): 22 gauge Bleeding controlled, band aid applied, catheter tip intact. km 21:46 Anuradha Yates, RN is Primary Nurse. mt4 21:49 No apparent distress. Resting quietly. Awaiting lab results. mt4 21:49 Patient has correct armband on for positive identification. Bed in low position. Call mt4 light in reach. Side rails up X 1. Provided Education on: LABS, IVS . Client placed on continuous cardiac and pulse oximetry monitoring. NIBP monitoring applied. Door closed. Lights dimmed. Warm blanket given. Pillow given. Verbal reassurance given. Assisted to bathroom. 21:49 No provider procedures requiring assistance completed. Inserted saline lock: in left mt4 antecubital area, using aseptic technique. Blood collected. Flushed with 10 mL NS. Patient maintains SpO2 saturation greater than 95% on room air. 22:08 Transvaginal Ob In Process Unspecified. EDMS 23:16 IV discontinued, intact, bleeding controlled, No redness/swelling at site. Pressure bm8 dressing applied. Administered Medications: 22:12 Drug: NS 0.9% IV 1000 ml IV at 1000 ml once; to be given as a bolus over 60 minutes mt4 Route: IV; Rate: 1000 ml; Site: left antecubital; 23:14 Follow up: Response: No adverse reaction; IV Status: Completed infusion; IV Intake: mt4 1000ml Medication: 21:49 VIS not applicable for this client. mt4 Intake: 23:14 IV: 1000ml; Total: 1000ml. mt4 Outcome: 23:09 Discharge ordered by . alfred 23:16 Discharged to home ambulatory, bm8 23:16 Condition: stable 23:16 Discharge instructions given to patient, Instructed on discharge instructions, follow up and referral plans. medication usage, safety practices, Demonstrated understanding of instructions, follow-up care, medications, 23:17 Patient left the ED. bm8 Signatures: Dispatcher [employer] EDMS Jossy Donahue, CALL CENTER PROFESSIONAL-C CALL CENTER PROFESSIONAL-Ckb Janay Marinelli, Reg Reg mr Diane Weldon, RN RN cm10 Oanh Betancourt [facility] Layo Moran, RN RN bm8 Anuradha Yates, RN RN mt4
--- NOTE | 2024-03-29 23:10 | EDPHYS ---
Physician Documentation [facility] Name: Gretta Ward Age: 18 yrs Sex: Female : 2005 Arrival Date: 03/29/2024 Time: 21:04 Bed 5 Private MD: ED Physician Oscar Thomson HPI: 03/29 21:31 This 18 yrs old Female presents to ER via Ambulatory with complaints of , kb Abdominal Pain. 21:31 Pt is a 18 year old female who presents for abd pain that started 4 days ago. Reports kb nausea and vomiting. Denies fever, diarrhea, vaginal bleeding. States she is currently . A0 LMP 02/15/24. . 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 - Infectious Disease History:: Denies. - Social history:: Smoking status: unknown. ROS: 21:31 Constitutional: As per HPI kb Exam: 21:31 Constitutional: This is a well developed, well nourished patient who is awake, alert, kb and in no acute distress. Head/Face: Normocephalic, atraumatic. ENT: Moist Mucous membranes Cardiovascular: Regular rate Respiratory: Respirations even and unlabored. No increased work of breathing. Talking in full sentences Skin: Warm, dry with normal turgor. Normal color. MS/ Extremity: Pulses equal, no cyanosis. Neurovascular intact. Full, normal range of motion. Neuro: Awake and alert, GCS 15, oriented to person, place, time, and situation. 21:31 Abdomen/GI: Inspection: abdomen appears normal, Bowel sounds: normal, Palpation: soft, in all quadrants, mild abdominal tenderness, in the left upper quadrant, right lower quadrant and left lower quadrant, Vital Signs: 21:22 BP 132 / 88; Pulse 80; Resp 16; Temp 99.6; Pulse Ox 100% ; Weight 59.87 kg; Height 5 cm10 ft. 5 in. ; Pain 7/10; 21:46 BP 132 / 88; Pulse 75; Resp 18; Temp 98.7(O); Pulse Ox 100% on R/A; Pain 7/10; mt4 23:13 BP 112 / 84; Pulse 65; Resp 17; Pulse Ox 100% on R/A; mt4 23:16 BP 112 / 64; Pulse 64; Resp 17; Temp 98.7; Pulse Ox 100% ; Pain 0/10; bm8 21:22 Body Mass Index 21.97 (59.87 kg, 165.1 cm) - Percentile 53.3 % cm10 21:22 Pain Scale: Adult cm10 21:46 Pain Scale: Adult mt4 23:16 Pain Scale: Adult bm8 [place] Coma Score: 21:49 Eye Response: spontaneous(4). Motor Response: obeys commands(6). Verbal Response: mt4 oriented(5). Total: 15. 23:16 Eye Response: spontaneous(4). Motor Response: obeys commands(6). Verbal Response: bm8 oriented(5). Total: 15. MDM: 21:10 Medical Screening Exam initiated kb 23:08 Differential diagnosis: gastroenteritis, , ectopic , threatened kb . Data reviewed: vital signs, nurses notes. Counseling: I had a detailed discussion with the patient and/or guardian regarding the historical points, exam findings, and any diagnostic results supporting the discharge/admit diagnosis, lab results, radiology results, the need for outpatient follow up, an OB/Gyne specialist, to return to the emergency department if symptoms worsen or persist or if there are any questions or concerns that arise at home. 03/29 21:16 Order name: Abo/rh Typing; Complete Time: 23:04 kb 03/29 21:16 Order name: Basic Metabolic Panel; Complete Time: 22:32 kb 03/29 21:16 Order name: CBC with Diff kb 03/29 21:16 Order name: Test, Urine; Complete Time: 22:04 kb 03/29 21:16 Order name: Quantitative Hcg; Complete Time: 22:32 kb 03/29 21:16 Order name: Urinalysis w/ reflexes; Complete Time: 22:04 kb 03/29 22:02 Order name: CBC Smear Scan EDMS 03/29 21:16 Order name: US Transvaginal Ob; Complete Time: 22:35 kb 03/29 21:16 Order name: IV Saline Lock; Complete Time: 21:46 kb 03/29 21:16 Order name: Labs collected and sent; Complete Time: 21:46 kb 03/29 21:16 Order name: NPO; Complete Time: 21:46 kb Administered Medications: 22:12 Drug: NS 0.9% IV 1000 ml IV at 1000 ml once; to be given as a bolus over 60 minutes mt4 Route: IV; Rate: 1000 ml; Site: left antecubital; 23:14 Follow up: Response: No adverse reaction; IV Status: Completed infusion; IV Intake: mt4 1000ml Disposition: 03/30 00:30 Co-signature as Attending Physician, Oscar Thomson MD I agree with the assessment sp4 and plan of care. I reviewed the patient's care provided by the Advanced Practice Provider and agree with the diagnosis and treatment plan. Disposition Summary: 03/29/24 23:09 Discharge Ordered Notes: Location: Home kb Condition: Stable kb Diagnosis - Less than 8 weeks gestation of kb - Abdominal pain, Generalized kb Followup: kb - With: Emergency Department - When: As needed - Reason: Worsening of condition Followup: kb - With: Private Physician - When: 2 - 3 days - Reason: Recheck today's complaints, Continuance of care, Re-evaluation by your physician Discharge Instructions: - Discharge Summary Sheet kb - Abdominal Pain During kb - First Trimester of , [id number] kb Forms: - Medication Reconciliation Form kb - Antibiotic Education kb - Prescription Opioid Use kb - Patient Portal Instructions kb - Leadership Thank You Letter kb - Work release form ty Signatures: Dispatcher [employer] Jossy Rob, FIELD ARTILLERY BASIC-C FIELD ARTILLERY BASIC-Oscar Kathleen MD MD sp4 Diane Weldon, RN RN cm10 Anuradha Yates, RN RN mt4
[2024-03-30 00:10] LABS: Blood Morphology Comment NOTED (NOT SEEN); Microcytosis 1+; Ovalocytes 1+; Platelet Estimate ADEQ; White Blood Cell Scan OK (OK)
[2024-03-30 04:47] VITALS: O2SAT 100
[2024-03-30 04:48] VITALS: TEMP 98.7
[2024-03-30 04:50] VITALS: BP 112/64
== END 2024-03-29 23:17 | disposition home or self-care (01) ==
LOC: ER 21:04
DX: O26.891 Other specified pregnancy related conditions, first trimester (principal); R10.84 Generalized abdominal pain; Z3A.01 Less than 8 weeks gestation of pregnancy
CPT/HCPCS: 85025; 81001; 80048; 36415; 86900; 81025; 86901; 84702; 76817; 96360; 99284; J7030

== ENCOUNTER 2024-09-06 16:35 | Emergency (ER) | payer OTHER ==
--- NOTE | 2024-09-06 18:34 | RAD REPORT ---
EXAM: OB Complete HISTORY: ABD CRAMPING, COMPARISON: None TECHNIQUE: Multiple grayscale and color Doppler images were obtained in a transabdominal pelvic ultra sound. Spectral analysis of the Doppler waveforms of the ovaries were performed. FINDINGS: Single cephalic presenting gestation. Anterior placenta. Closed cervix measuring 4.2 cm. Femur length measures 5.5 cm which is consistent with 29 week 0 day. GEOVANI: 11.4 cm, MVP: 4 cm Heart rate: 131 bpm RIGHT OVARY: Nonvisualized LEFT OVARY: Nonvisualized IMPRESSION: 1. Single live intrauterine with estimated age of 29 week 0 day. 2. Closed cervix. 3. GEOVANI: 11.4 cm (within normal limits).
[2024-09-06 20:25] LABS: Absolute Eosinophils 0.1 K/uL (0-0.5); Absolute Lymphocytes (CBC) 1.8 K/uL (0.7-4.9); Absolute Monocytes 0.8 K/uL (0.1-1.3); Absolute Neutrophil 8.6 K/uL (1.8-8.0); Basophils % 0.2 % (0-1.3); Eosinophils % 0.6 % (0-4.4); Hematocrit 35.2 % (36.0-45.0); Hemoglobin 12.1 g/dL (12.0-15.0); Lymphocytes % 16.2 % (15.3-44.8); MCH 28.5 pg (27.0-35.0); MCHC 34.4 g/dL (32.0-36.0); MCV 82.8 fL (80-100); Monocytes % 6.7 % (3.3-12.3); Neutrophils % 76.3 % (41.7-73.7); Platelets 263 thou/uL (152-406); RBC Red Blood Cell Count 4.25 M/uL (3.86-4.86); Red Cell Distribution Width 16.3 % (12.1-15.2)
[2024-09-06 20:39] LABS: Anion Gap 8.5 mEq/L (5.0-15.0); Potassium 3.5 mEq/L (3.5-5.1)
[2024-09-06 20:44] LABS: Specific Gravity 1.019 (1.005-1.030); Sqamous Epithelial <5 /HPF (None Seen); Urine Bacteria <20 /HPF (<20); Urine Bilirubin NEGATIVE (Negative); Urine Blood Negative (Negative); Urine Clarity Turbid (Clear); Urine Color Light-Yellow (Yellow); Urine Crystals Unidentified Few /HPF (None Seen); Urine Culture Reflex Order REFLEXED; Urine Glucose NEGATIVE (Negative); Urine Ketones 1+ (Negative); Urine Microscopic Reflex YN ORDER UMIC; Urine Mucus Slight /HPF (None Seen); Urine Nitrite NEGATIVE (Negative); Urine Protein NEGATIVE (Negative); Urine RBC <5 /HPF (None Seen); Urine Urobilinogen Normal (Normal); Urine WBC <5 /HPF (<5)
[2024-09-06] MEDS ORDERED: ACETAMINOPHEN 325 MG TABLET ONE (20:46)
--- NOTE | 2024-09-06 21:19 | EDPHYS ---
Physician Documentation [facility] Name: Gretta Ward Age: 19 yrs Sex: Female : 2005 Arrival Date: 09/06/2024 Time: 16:35 Bed 12 Private MD: ED Physician Oscar Thomson HPI: 09/06 17:36 This 19 yrs old Female presents to ER via Ambulatory with complaints of Abdominal Pain sb4 - 29 WKS . 17:36 The patient presents with abdominal pain that is diffuse. Onset: The symptoms/episode sb4 began/occurred this morning. The symptoms do not radiate. Associated signs and symptoms: none. The symptoms are described as crampy. Modifying factors: The symptoms are alleviated by nothing, the symptoms are aggravated by nothing. The patient has not experienced similar symptoms in the past. The patient has not recently seen a physician. 17:37 The patient presents to the emergency department with abdominal pain, of the right sb4 upper quadrant, left upper quadrant, right lower quadrant and left lower quadrant, that started this morning, described as crampy. The estimated gestational age is 29 weeks. course: care: private OB physician, Leakage of Fluid: none appreciated, Ultrasound: the patient had an ultrasound, which was normal, Risk/complications: no obvious risks or complications are appreciated. Previous pregnancies: the patient has never been . Associated signs and symptoms: Pertinent negatives: chest pain, dysuria, fever, nausea, ruptured membranes, vaginal bleeding, vaginal discharge, vomiting. 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 - Infectious Disease History:: Denies. - Social history:: Smoking status: Patient denies any tobacco usage or history of. ROS: 17:37 Constitutional: Negative for fever, chills, and weight loss, sb4 17:37 Abdomen/GI: Positive for abdominal pain, 17:37 All other systems are negative, Exam: 17:37 Constitutional: This is a well developed, well nourished patient who is awake, alert, sb4 and in no acute distress. Head/Face: Normocephalic, atraumatic. Eyes: Extra-ocular motions intact. Periorbital areas with no swelling, redness, or edema. ENT: Mucous membranes moist. Cardiovascular: Regular rate and rhythm with a normal S1 and S2. Respiratory: No increased work of breathing, no retractions or nasal flaring. Skin: Warm, dry with normal turgor. Normal color with no rashes, no lesions, and no evidence of cellulitis. MS/ Extremity: Pulses equal, no cyanosis. Neurovascular intact. Full, normal range of motion. Neuro: Awake and alert, GCS 15, oriented to person, place, time, and situation. Motor strength 5/5 in all extremities. Sensory grossly intact. 17:37 Abdomen/GI: Palpation: nontender, in all quadrants, 17:37 : Gravid exam: Fundal height: consistent with gestational age, 20:18 : Pelvic Exam: External exam: is normal, Speculum exam: no bleeding is noted, no sb4 cervicitis, os that is closed, no tissue in cervix is seen, no tissue in vagina is seen, discharge, white, Vital Signs: 17:28 BP 117 / 75; Pulse 78; Resp 18; Temp 98; Pulse Ox 100% ; Weight 66.68 kg; Height 5 ft. ap3 6 in. ; Pain 7/10; 20:27 Pain 4/10; sb4 17:28 Body Mass Index 23.73 (66.68 kg, 167.64 cm) ap3 17:28 Pain Scale: Adult ap3 20:27 Pain Scale: Adult sb4 MDM: 16:40 Medical Screening Exam initiated sb4 19:57 Data reviewed: vital signs, nurses notes, lab test result(s), radiologic studies, and sb4 as a result, I will discharge patient. Counseling: I had a detailed discussion with the patient and/or guardian regarding the historical points, exam findings, and any diagnostic results supporting the discharge/admit diagnosis, lab results, radiology results, the need for outpatient follow up, an OB/Gyne specialist, to return to the emergency department if symptoms worsen or persist or if there are any questions or concerns that arise at home. 20:27 ED course: patient states her pain improves while laying down, worsens while ambulating.sb4 09/06 17:34 Order name: CBC with Diff; Complete Time: 20:26 sb4 09/06 17:34 Order name: BMP; Complete Time: 20:45 sb4 09/06 17:34 Order name: UA Rfx Ed Cult if indicated; Complete Time: 21:15 sb4 09/06 21:18 Order name: Urine Culture EDNE 09/06 17:34 Order name: US OB Complete; Complete Time: 18:35 sb4 Administered Medications: 21:02 Drug: Acetaminophen PO 650 mg PO once Route: PO; vc1 Disposition: 21:18 Co-signature as Attending Physician, Fozia Braden PA-C I agree with the assessment and sp4 plan of care. I reviewed the patient's care provided by Advanced Practice Provider \T\ agree w/ the diagnosis \T\ care plan. I personally saw the pt \T\ performed a substantive portion of the visit, incldng all aspects of the (History/Exam/Medical Decision Making). Disposition Summary: 09/06/24 21:18 Discharge Ordered Notes: Location: Home sp4 Problem: new sp4 Symptoms: have improved sp4 Condition: Stable sp4 Diagnosis - 29 weeks gestation of sp4 - Abdominal cramping sp4 Followup: sb4 - With: Private Physician - When: 2 - 3 days - Reason: Recheck today's complaints, Re-evaluation by your physician Discharge Instructions: - Discharge Summary Sheet sp4 - Abdominal Pain During , [id number] sp4 Forms: - Work release form vc1 - Patient Portal Instructions sp4 Prescriptions: - ondansetron 4 mg Oral Tablet,disintegrating - take 1 tablet ORAL route every 6 hours as needed for nausea and vomiting; 30 sp4 tablet; Refills: 0, Product Selection Permitted Signatures: Dispatcher [employer] [facility] Jolynn Kwon RN RN ap3 Lynne Vega RN RN vc1 Fozia Braden PA-C PA-C sb4 Oscar Thomson MD MD sp4 Corrections: (The following items were deleted from the chart) 19:55 17:41 Undress Patient ordered. sb4 sb4 19:55 17:41 Pelvic Exam Setup ordered. sb4 sb4
--- NOTE | 2024-09-06 21:19 | ER ---
Nurse's Notes [facility] Name: Gretta Ward Age: 19 yrs Sex: Female : 2005 Arrival Date: 09/06/2024 Time: 16:35 Bed 12 Private MD: Diagnosis: 29 weeks gestation of ;Abdominal cramping Presentation: 09/06 17:28 Chief complaint: Patient states: she is approx 29 weeks and is having ap3 generalized abdominal cramping that is constant. patient currently rates her pain as a 7/10 on the pain scale. Coronavirus screen: At this time, the client does not indicate any symptoms associated with coronavirus-19. Ebola Screen: No symptoms or risks identified at this time. Initial Sepsis Screen: Does the patient meet any 2 criteria? No. Patient's initial sepsis screen is negative. Does the patient have a suspected source of infection? No. Patient's initial sepsis screen is negative. Risk Assessment: Do you want to hurt yourself or someone else? Patient reports no desire to harm self or others. Onset of symptoms. 17:28 Method Of Arrival: Ambulatory ap3 17:28 Acuity: STEVE 3 ap3 Triage Assessment: 17:30 General: Appears in no apparent distress. Behavior is calm, cooperative, appropriate ap3 for age. Pain: Complains of pain in abdomen Pain currently is 7 out of 10 on a pain scale. Is continuous. Neuro: Level of Consciousness is awake, alert, obeys commands, Oriented to person, place, time, situation, Appropriate for age. Cardiovascular: Patient's skin is warm and dry. Respiratory: Airway is patent Respiratory effort is even, unlabored, Respiratory pattern is regular, symmetrical. GI: Reports lower abdominal pain, upper abdominal pain, cramping. 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 - Infectious Disease History:: Denies. - Social history:: Smoking status: Patient denies any tobacco usage or history of. Screenin:30 [facility] ED Fall Risk Assessment (Adult) History of falling in the last 3 months, ap3 including since admission No falls in past 3 months (0 pts) Confusion or Disorientation No (0 pts) Intoxicated or Sedated No (0 pts) Impaired Gait No (0 pts) Mobility Assist Device Used No (0 pt) Altered Elimination No (0 pt) Score/Fall Risk Level 0 - 2 = Low Risk Oriented to surroundings, Maintained a safe environment, Educated pt \T\ family on fall prevention, incl call for assistance when getting out of bed, Assessed \T\ reinforced patient's understanding of fall precautions, Hourly rounding (assess needs \T\ fall precautionary measures) done, Used ambulatory aids as needed (educated on \T\ assisted with). Abuse screen: Denies threats or abuse. Nutritional screening: No deficits noted. Tuberculosis screening: No symptoms or risk factors identified. Vital Signs: 17:28 BP 117 / 75; Pulse 78; Resp 18; Temp 98; Pulse Ox 100% ; Weight 66.68 kg; Height 5 ft. ap3 6 in. ; Pain 7/10; 20:27 Pain 4/10; sb4 17:28 Body Mass Index 23.73 (66.68 kg, 167.64 cm) ap3 17:28 Pain Scale: Adult ap3 20:27 Pain Scale: Adult sb4 ED Course: 16:39 Patient arrived in ED. cj3 16:40 Fozia Braden PA-C is PHCP. sb4 16:40 Maxine Love MD is Attending Physician. sb4 17:29 Triage completed. ap3 17:30 Arm band placed on left wrist. ap3 18:15 US OB Complete In Process Unspecified. EDMS 20:33 Attending Physician role handed off by Maxine Love MD sp4 20:33 Oscar Thomson MD is Attending Physician. sp4 22:04 No provider procedures requiring assistance completed. Patient did not have IV access vc1 during this emergency room visit. 22:05 Patient has correct armband on for positive identification. Provided Education on: f/u vc1 with OB. Administered Medications: 21:02 Drug: Acetaminophen PO 650 mg PO once Route: PO; vc1 Medication: 22:05 VIS not applicable for this client. vc1 Outcome: 21:18 Discharge ordered by . sp4 22:05 Discharged to home ambulatory, vc1 22:05 Condition: stable 22:05 Discharge instructions given to patient, Instructed on discharge instructions, follow up and referral plans. medication usage, Demonstrated understanding of instructions, follow-up care, medications, Prescriptions given X 1, 22:06 Patient left the ED. vc1 Signatures: Dispatcher [employer] Jolynn Garrett RN RN ap3 Lynne Vega RN RN vc1 Fozia Braden PA-C PA-C sb4 Oscar Thomson MD MD sp4 Shahida Santana cj3
[2024-09-06 22:11] VITALS: BP 117/75; TEMP 98; O2SAT 100
== END 2024-09-06 22:06 | disposition home or self-care (01) ==
LOC: ER 16:35
DX: O26.893 Other specified pregnancy related conditions, third trimester (principal); Z3A.29 29 weeks gestation of pregnancy
CPT/HCPCS: 36415; 76805; 80048; 81001; 85025; 87086; 87088; 99283